=== PATIENT | male | born 1990 | race Caucasian/White ===

== ENCOUNTER 2018-09-28 16:23 | Inpatient (IN) | payer MEDICARE, MEDICAID, SELFPAY ==
[2018-09-28 16:24] VITALS: BP 160/103; PULSE 90; RESP 18; TEMP 36.4; O2SAT 97; BMI 39.3
--- NOTE | 2018-09-28 16:42 | ED.DCSUM_ITS ---
- ER Visit Summary Date of Service: 09/28/18 Chief Complaint: Detox History of Present Illness: The patient is a 28 M who is requesting detox from alcohol. He drinks approximately 24 beers per day. He has been using for about 4 years. His last period of sobriety was about a year ago. His last drink was yesterday. He reports DT symptoms. Denies a history of seizures. Denies any other drug use. Denies any thoughts of suicide or homicide. Physical Examination: Afebrile vital signs unremarkable except blood pressure 160/103. Patient is mildly diaphoretic. He has an intention tremor. Otherwise exam fairly unremarkable. Results: Laboratory studies, tox screen, alcohol pending. Emergency Department Course and Treatment: Patients CIWA score is 18. He was treated with Ativan. Will check clearance testing and contact the hospitalist for admission. Work-up unremarkable. Alcohol level pending. Hospitalist was contacted and will admit. Treatment Plan: As above Disposition: Admission Impression: 1. Alcohol withdrawal This note was generated with Video Pass[employer] dictation software. It may contain incorrect words, spelling, and punctuation that were not noted in review of the chart prior to signing ED Disposition - Plan for ED Patient: Referrals: Care Physician,No Primary [Primary Care Provider] -
[2018-09-28] MEDS: LORazepam 1 MG Tablet PO (17:00)
[2018-09-28 17:15] LABS: Absolute Lymphocyte Count 2.53 X10^3/uL (0.83-4.51); Absolute Neutrophil Count 5.9 X10^3/uL (2.0-7.7); Basophil# 0.04 X10^3/uL; Basophil% 0.4 % (0-1); Eosinophil# 0.19 X10^3/uL; Hematocrit 47.4 % (40-54); Hemoglobin 15.1 g/dL (13.0-16.5); Lymphocyte # 2.53 X10^3/ul (4.0); Mean Corp Hgb Conc 31.9 g/dL (32-36); Mean Corpuscular Hgb 29.4 pg (27.0-32.0); Mean Corpuscular Volume 92.2 fL (80-94); Mean Platelet Vol. 9.5 fl (6.2-12.0); Monocyte# 0.66 X10^3/uL; NRBC Flagged by Analyzer 0 % (0-5); Neutrophil # 5.89 X10^3/uL (2.7-7.7); Neutrophil % 62.9 % (47-70); Platelet Count 260 K/mm3 (150-450); RBC Distribution Width CV 13.4 % (11.6-14.6); RBC Distribution Width SD 45.5 fl (35.1-43.9); Red Blood Count 5.14 M/mm3 (4.6-6.2); White Blood Count 9.4 K/mm3 (4.4-11.0)
[2018-09-28 17:25] LABS: Amphetamine Urine VISTA NEGATIVE (<1000 ng/mL); Barbiturate Urine VISTA NEGATIVE (< 200 ng/mL); Benzodiazepine Urine VISTA NEGATIVE (< 200 ng/mL); Cocaine Urine VISTA NEGATIVE (< 300 ng/mL); Ecstacy Urine VISTA NEGATIVE (< 500 ng/mL); Methadone Urine VISTA NEGATIVE (< 300 ng/mL); PCP Urine VISTA NEGATIVE (< 25 ng/mL); THC Urine VISTA NEGATIVE (< 50 ng/mL); Vista UDS pH Range 6
[2018-09-28 17:26] VITALS: BMI 39.4
[2018-09-28 17:33] LABS: ALB/GLOB Ratio 0.9 RATIO (0.9-2.4); AST(SGOT) 44 U/L (15-37); Alanine Aminotransfer ALT/SGPT 73 U/L (16-61); Albumin, Serum 3.8 g/dL (3.2-5.0); Alkaline Phosphatase 109 U/L (45-117); Anion Gap 1 (5-15); BUN 12 mg/dL (7-18); BUN/Creat Ratio 13.3 RATIO (10-20); Calcium,Total 8.8 mg/dL (8.5-10.1); Chloride 106 mmol/L (98-107); EST Glomerular Filtration Rate 107 mL/min (>60); Est Glom Filt Rate - Afr Amer 129 mL/min (>60); Estimated Creatinine Clearance 150.02 ml/min; Globulin 4.2 g/dL (2.2-4.2); Glucose 96 mg/dL (74-106); Potassium 3.9 mmol/L (3.5-5.1); Sodium Level 136 mmol/L (136-145)
[2018-09-28 17:58] VITALS: BP 156/96; PULSE 79; RESP 18; TEMP 36.4; O2SAT 97
[2018-09-28 18:17] LABS: Alcohol, Blood (Medical)-Serum < 3.0 mg/dL
[2018-09-28 18:37] VITALS: BMI 39.4
[2018-09-28 18:41] VITALS: BMI 39.0
[2018-09-28 18:46] VITALS: BP 134/84; PULSE 78; RESP 18; TEMP 36.9
[2018-09-28 18:50] LABS: Bedside Glucose 92 mg/dL (70-110)
--- NOTE | 2018-09-28 19:43 | PCM.HP.STD ---
<Sanjay Ridley - Last Filed: 09/28/18 19:43> Problem List (1) Alcohol withdrawal Status: Acute (2) Nicotine abuse Status: Chronic History of Present Illness Date of Admission: 09/28/18 Chief Complaint: alcohol withdrawal The patient is a 28 year old M with pmhx of alcoholism and nicotine abuse who presented to the ER with alcohol withdrawal requesting help with detox. He has been drinking daily since he was a teenager. Lately he drinks 24 beers per day and half of a bottle of grocery store strength vodka. He states that lately, when he stops drinking he becomes very nauseous and vomits, and he gets right upper quadrant liver pain. He has upper extremity tremor. He has no hx of withdrawal seizures. He has had withdrawal hallucinations before - none this time. He starts drinking again so that these symptoms go away. He talked to his rag cutting machine tender about these problems who convinced him to come to the ER and get sober. He currently has mild nausea as the meds he received in the ER are working well. He plans [facility]. He smokes 1 ppd and would like a patch. He does not use recreational drugs. [] Past Medical History Past Medical History (Chronic Problems): Chronic Problems Nicotine abuse (Chronic) Allergies No Known Allergies Allergy (Verified 09/28/18 16:24) Home Medications: Ambulatory Orders Medication Instructions Recorded NK 09/28/18 Surgical History: adenoidectomy, tonsillectomy Psychiatric History: No pertinent psych hx Lives: Alone Smoking Status: Current every day smoker Tobacco Use: Cigarettes Alcohol: Heavy Drugs: None - *Family History Maternal History Items: - - denies any maternal medical hx Paternal History Items: - - denies any paternal medical hx Review of Systems Constitutional: Denies: Chills, Fever, Weight Change HEENT: Denies: Head Aches, Sinus Congestion, Sinus Drainage Cardiovascular: Denies: Chest Pain, Palpitations Respiratory: Denies: Cough, Shortness of breath at rest, Sputum production Gastrointestinal: Reports: Nausea, Vomiting. Denies: Abdominal Pain Genitourinary: Denies: Dysuria Musculoskeletal: Denies: Joint Pain, Joint Tenderness Skin: Denies: Rash, Wounds Neurological: Reports: Tremor. Denies: Focal weakness, Numbness, Tingling Psychiatric: Denies: Anxiety, Depression, Homicidal Ideations, Suicidal Ideations Hematologic/ Lymphatic: Denies: Easy Bruising, Easy Bleeding VTE Information - Inpt Only VTE Present on Admission: No VTE Mechan Device Prophylaxis: None VTE Pharm Prophylaxis ordered?: No Reason prophylaxis not ordered:: Procedure Not Indicated Patient Problems: Active and Suspected Problems Alcohol withdrawal (Acute) - Physical Exam General: Alert, Oriented x3, Cooperative HEENT: Atraumatic, PERRLA, EOMI, Normocephalic Neck: Supple, No JVD, Negative Carotid Bruits Lungs: Clear to auscultation, Normal air movement Cardiovascular: Regular rate, No murmurs Abdomen: Bowel Sounds Present, Soft, Non Tender Extremities: No edema, Capillary Refill Less than 3 Seconds Skin: No rashes, No breakdown Musculoskeletal: No Tenderness to Palpation of Joints or Extremities Neurological: Cranial nerves II-XII grossly intact, - - mild upper extremity tremor/ Psych/Mental Status: Normal Affect, Appropriate, Alert and oriented to time, place, person, mood and affect Vital Signs Temp Pulse Resp BP Pulse Ox 98.4 F 78 18 134/84 H 97 09/28/18 18:46 09/28/18 18:46 09/28/18 18:46 09/28/18 18:46 09/28/18 17:58 Oxygen Delivery Method Room Air Weight: 323 lb 10.217 oz Body Mass Index (BMI) 39.4 Laboratory Tests Past 24 Hrs 09/28/18 09/28/18 09/28/18 17:08 17:08 17:08 WBC 9.4 RBC 5.14 Hgb 15.1 Hct 47.4 MCV 92.2 MCH 29.4 MCHC 31.9 L RDW Std Deviation 45.5 H RDW Coeff of Debra 13.4 Plt Count 260 MPV 9.5 Immature Gran % (Auto) 0.700 Neut % (Auto) 62.9 Lymph % (Auto) 27.0 Schoolcraft % (Auto) 7.0 Eos % (Auto) 2.0 Baso % (Auto) 0.4 Absolute Neuts (auto) 5.9 Absolute Lymphs (auto) 2.53 Absolute Nucleated RBC 0.00 Nucleated RBC % 0 Sodium 136 Potassium 3.9 Chloride 106 Carbon Dioxide 29.0 Anion Gap 1 L BUN 12 Creatinine 0.90 Estim Creat Clear Calc 150.02 Est GFR (MDRD) Af Amer 129 Est GFR (MDRD) Non-Af 107 BUN/Creatinine Ratio 13.3 Glucose 96 Calcium 8.8 Total Bilirubin 0.40 AST 44 H ALT 73 H Alkaline Phosphatase 109 Total Protein 8.0 Albumin 3.8 Globulin 4.2 Albumin/Globulin Ratio 0.9 Urine Opiates Screen Urine Methadone Screen Ur Barbiturates Screen Ur Phencyclidine Scrn Ur Amphetamines Screen U Methamphetamin-MDMA U Benzodiazepines Scrn Urine Cocaine Screen U Cannabinoids Screen Ur Drug Screen Comment Ethyl Alcohol < 3.0 09/28/18 17:08 WBC RBC Hgb Hct MCV MCH MCHC RDW Std Deviation RDW Coeff of Debra Plt Count MPV Immature Gran % (Auto) Neut % (Auto) Lymph % (Auto) Schoolcraft % (Auto) Eos % (Auto) Baso % (Auto) Absolute Neuts (auto) Absolute Lymphs (auto) Absolute Nucleated RBC Nucleated RBC % Sodium Potassium Chloride Carbon Dioxide Anion Gap BUN Creatinine Estim Creat Clear Calc Est GFR (MDRD) Af Amer Est GFR (MDRD) Non-Af BUN/Creatinine Ratio Glucose Calcium Total Bilirubin AST ALT Alkaline Phosphatase Total Protein Albumin Globulin Albumin/Globulin Ratio Urine Opiates Screen NEGATIVE Urine Methadone Screen NEGATIVE Ur Barbiturates Screen NEGATIVE Ur Phencyclidine Scrn NEGATIVE Ur Amphetamines Screen NEGATIVE U Methamphetamin-MDMA NEGATIVE U Benzodiazepines Scrn NEGATIVE Urine Cocaine Screen NEGATIVE U Cannabinoids Screen NEGATIVE Ur Drug Screen Comment Ethyl Alcohol POC Glucose 09/28/18 18:35 POC Glucose 92 Assessment/Plan All Active Problems Alcohol withdrawal (Acute) 1. Alcoholism with acute withdrawal - 24 beers per day + 1/2 bottle grocery store vodka. Current sx: tremor, nausea, vomiting. No hx seizure. Prior hx hallucinations - none currently. Start librium taper and supportive prn meds. -CMP mild elevation of AST/ALT -Tox screen neg. 2. Nicotine abuse - patch DC planning: inpatient rehab Medical stabilization day 1 of This patient was seen by Sanjay Ridley PA-C under the supervision of Dr. Grant <Brandy Grant - Last Filed: 09/28/18 20:43> History of Present Illness The patient is a 28 year old M [] Past Medical History Allergies No Known Allergies Allergy (Verified 09/28/18 16:24) - Physical Exam Vital Signs Temp Pulse Resp BP Pulse Ox 98.4 F 78 18 134/84 H 97 09/28/18 18:46 09/28/18 18:46 09/28/18 18:46 09/28/18 18:46 09/28/18 17:58 Oxygen Delivery Method Room Air Weight: 323 lb 10.217 oz Body Mass Index (BMI) 39.4 Laboratory Tests Past 24 Hrs 09/28/18 09/28/18 09/28/18 17:08 17:08 17:08 WBC 9.4 RBC 5.14 Hgb 15.1 Hct 47.4 MCV 92.2 MCH 29.4 MCHC 31.9 L RDW Std Deviation 45.5 H RDW Coeff of Debra 13.4 Plt Count 260 MPV 9.5 Immature Gran % (Auto) 0.700 Neut % (Auto) 62.9 Lymph % (Auto) 27.0 Schoolcraft % (Auto) 7.0 Eos % (Auto) 2.0 Baso % (Auto) 0.4 Absolute Neuts (auto) 5.9 Absolute Lymphs (auto) 2.53 Absolute Nucleated RBC 0.00 Nucleated RBC % 0 Sodium 136 Potassium 3.9 Chloride 106 Carbon Dioxide 29.0 Anion Gap 1 L BUN 12 Creatinine 0.90 Estim Creat Clear Calc 150.02 Est GFR (MDRD) Af Amer 129 Est GFR (MDRD) Non-Af 107 BUN/Creatinine Ratio 13.3 Glucose 96 Calcium 8.8 Total Bilirubin 0.40 AST 44 H ALT 73 H Alkaline Phosphatase 109 Total Protein 8.0 Albumin 3.8 Globulin 4.2 Albumin/Globulin Ratio 0.9 Urine Opiates Screen Urine Methadone Screen Ur Barbiturates Screen Ur Phencyclidine Scrn Ur Amphetamines Screen U Methamphetamin-MDMA U Benzodiazepines Scrn Urine Cocaine Screen U Cannabinoids Screen Ur Drug Screen Comment Ethyl Alcohol < 3.0 09/28/18 17:08 WBC RBC Hgb Hct MCV MCH MCHC RDW Std Deviation RDW Coeff of Debra Plt Count MPV Immature Gran % (Auto) Neut % (Auto) Lymph % (Auto) Schoolcraft % (Auto) Eos % (Auto) Baso % (Auto) Absolute Neuts (auto) Absolute Lymphs (auto) Absolute Nucleated RBC Nucleated RBC % Sodium Potassium Chloride Carbon Dioxide Anion Gap BUN Creatinine Estim Creat Clear Calc Est GFR (MDRD) Af Amer Est GFR (MDRD) Non-Af BUN/Creatinine Ratio Glucose Calcium Total Bilirubin AST ALT Alkaline Phosphatase Total Protein Albumin Globulin Albumin/Globulin Ratio Urine Opiates Screen NEGATIVE Urine Methadone Screen NEGATIVE Ur Barbiturates Screen NEGATIVE Ur Phencyclidine Scrn NEGATIVE Ur Amphetamines Screen NEGATIVE U Methamphetamin-MDMA NEGATIVE U Benzodiazepines Scrn NEGATIVE Urine Cocaine Screen NEGATIVE U Cannabinoids Screen NEGATIVE Ur Drug Screen Comment Ethyl Alcohol POC Glucose 09/28/18 18:35 POC Glucose 92 Assessment/Plan Pateint seen by Sanjay Ridley PA-C under my supervision Patient is a 28-year-old with a history of dependence and nicotine abuse was admitted to the ED for alcohol withdrawal. Patient has been drinking since he was a teenager and drinks about 24 beers a day as well as help her low vodka. States he gets right upper quadrant pain when he stops drinking that is why he is continued drinking. He states he has withdrawal hallucinations but denies any history of withdrawal seizures. He decided to come into the ED for acute withdrawal. o/e: Vital Signs Height 6 ft 4 in Weight: 323 lb 10.217 oz Weight in Pounds 323.6 lbs Pulse Ox 97 Temperature 98.4 F Pulse Rate 78 Respiratory Rate 18 Blood Pressure 134/84 General: Alert, Oriented x3, Cooperative HEENT: Atraumatic, PERRLA, EOMI, Normocephalic Neck: Supple, No JVD, Negative Carotid Bruits Lungs: Clear to auscultation, Normal air movement Cardiovascular: Regular rate, No murmurs Abdomen: Bowel Sounds Present, Soft, Non Tender Extremities: No edema, Capillary Refill Less than 3 Seconds Skin: No rashes, No breakdown Musculoskeletal: No Tenderness to Palpation of Joints or Extremities Neurological: Cranial nerves II-XII grossly intact, - - mild upper extremity tremor Psych/Mental Status: Normal Affect, Appropriate, Alert and oriented to time, place, person, mood and affect Plan is to admit to [facility] surg for alcohol withdrawal. Start librium withdrawal protocol. Labs showed mildly elevated AST and ALT. CBC was unremarkable.. Tox was negative. Nicotine patch 21 mg daily. Rest of management as per Sanjay Ridley PA-C's note, which I have reviewed and endorsed. Code Visit Inpatient E&M: 29108 Init Hosp L3
[2018-09-28] MEDS: chlordiazePOXIDE 25 MG Capsule PO (20:26)
[2018-09-28 22:45] VITALS: BP 112/70; PULSE 80; RESP 16; TEMP 36.4
[2018-09-28] MEDS: traZODone 50 MG Tablet PO (22:50)
[2018-09-29 02:55] VITALS: BP 134/90; PULSE 84; RESP 16; TEMP 36.7
[2018-09-29] MEDS: chlordiazePOXIDE 25 MG Capsule PO ×4 (02:57→22:15)
[2018-09-29 06:56] VITALS: BP 133/93; PULSE 82; RESP 16; TEMP 37
[2018-09-29] MEDS: Methocarbamol 750 MG Tablet PO ×2 (07:00→15:36)
[2018-09-29] MEDS: hydrOXYzine PAM 25 MG Capsule 50 MG PO (07:00)
[2018-09-29] MEDS: Ondansetron ODT 4 MG Tablet PO (07:00)
--- NOTE | 2018-09-29 07:49 | PCM.PN.HOSP ---
Patient Problems: Active and Suspected Problems Alcohol withdrawal (Acute) Subjective: Doing well, no issues. States he does have a little bit of tremors but nothing terrible. Vitals/I&O's: Vital Signs Temp Pulse Resp BP Pulse Ox 98.6 F 82 16 133/93 H 97 09/29/18 06:56 09/29/18 06:56 09/29/18 06:56 09/29/18 06:56 09/28/18 17:58 Oxygen Delivery Method Room Air Weight: 323 lb 10.217 oz Body Mass Index (BMI) 39.4 Intake and Output for Last 24 Hours 09/27/18 09/28/18 09/29/18 23:59 23:59 23:59 Intake Total 1000 / 1000 Balance 1000 / 1000 General: Alert, Oriented x3, Cooperative, No apparent distress HEENT: Atraumatic, PERRLA, EOMI, Normocephalic Oral: Dry Mucosa Neck: Supple, No JVD Lungs: Clear to auscultation, Normal air movement, No rhonchi, No wheeze, No rales Cardiovascular: Regular rate, Regular Rhythm, Normal S1, Normal S2, No murmurs Abdomen: Soft, Non Tender, Non-Distended, No Hepato-splenomegaly Extremities: No edema, Capillary Refill Less than 3 Seconds Skin: No rashes, No breakdown Neurological: Neuro grossly intact, Sensory exam intact to light touch and pain Psych/Mental Status: Normal Affect, Appropriate Laboratory Results 09/28/18 17:08: WBC 9.4, RBC 5.14, Hgb 15.1, Hct 47.4, MCV 92.2, MCH 29.4, MCHC 31.9 L, RDW Std Deviation 45.5 H, RDW Coeff of Debra 13.4, Plt Count 260, MPV 9.5, Immature Gran % (Auto) 0.700, Neut % (Auto) 62.9, Lymph % (Auto) 27.0, Posey % (Auto) 7.0, Eos % (Auto) 2.0, Baso % (Auto) 0.4, Absolute Neuts (auto) 5.9, Absolute Lymphs (auto) 2.53, Absolute Nucleated RBC 0.00, Nucleated RBC % 0 09/28/18 17:08: Sodium 136, Potassium 3.9, Chloride 106, Carbon Dioxide 29.0, Anion Gap 1 L, BUN 12, Creatinine 0.90, Estim Creat Clear Calc 150.02, Est GFR (MDRD) Af Amer 129, Est GFR (MDRD) Non-Af 107, BUN/Creatinine Ratio 13.3, Glucose 96, Calcium 8.8, Total Bilirubin 0.40, AST 44 H, ALT 73 H, Alkaline Phosphatase 109, Total Protein 8.0, Albumin 3.8, Globulin 4.2, Albumin/Globulin Ratio 0.9 09/28/18 17:08: Ethyl Alcohol < 3.0 09/28/18 17:08: Urine Opiates Screen NEGATIVE, Urine Methadone Screen NEGATIVE, Ur Barbiturates Screen NEGATIVE, Ur Phencyclidine Scrn NEGATIVE, Ur Amphetamines Screen NEGATIVE, U Methamphetamin-MDMA NEGATIVE, U Benzodiazepines Scrn NEGATIVE, Urine Cocaine Screen NEGATIVE, U Cannabinoids Screen NEGATIVE, Ur Drug Screen Comment 09/28/18 18:35: POC Glucose 92 Current Medications Al Hydroxide/Mg Hydroxide (Mylanta Ii) 30 ml PO Q6H PRN PRN PRN Reason: dyspesia Bisacodyl (Dulcolax) 10 mg RECTAL DAILY PRN PRN Reason: Constipation Chlordiazepoxide (Librium) 50 mg PO Q6H MUSHTAQ; Taper Stop: 10/01/18 22:29 Last Admin: 09/29/18 02:57 Dose: 50 mg Documented by: Dicyclomine HCl (Bentyl) 20 mg PO Q6H PRN PRN PRN Reason: abdominal discomfort Folic Acid (Folic Acid) 1 mg PO DAILYCM MUSHTAQ Stop: 10/01/18 08:01 Hydroxyzine Pamoate (Vistaril Pamoate Capsule) 50 mg PO Q6H PRN PRN PRN Reason: Mild Anxiety (score 1/3) Last Admin: 09/29/18 07:00 Dose: 50 mg Documented by: Ibuprofen (Motrin) 600 mg PO Q8H PRN PRN PRN Reason: Mild-Moderate Pain (1-5/10) Loperamide HCl (Imodium) 2 - 4 mg PO UD PRN PRN Reason: LOOSE STOOLS Lorazepam (Ativan) 1 mg IV Q4H PRN PRN PRN Reason: Severe Anxiety Lorazepam (Ativan) 2 mg IV X1 PRN PRN Reason: Seizure Methocarbamol (Methocarbamol) 750 mg PO Q6H PRN PRN PRN Reason: Muscle Aches Last Admin: 09/29/18 07:00 Dose: 750 mg Documented by: Multivitamins (Multivitamin) [facility] Nicotine (Nicoderm Cq (Pbkc)) 21 mg TRANSDERM. DAILY [facility] Last Admin: 09/28/18 22:49 Dose: 21 mg Documented by: Nutritional Formula (Lactose Free) (Ensure Enlive) 120 ml PO 4X/DAY [facility] Last Admin: 09/28/18 22:50 Dose: 120 ml Documented by: Ondansetron HCl (Zofran Odt) 4 mg PO Q6H PRN PRN PRN Reason: NAUSEA Last Admin: 09/29/18 07:00 Dose: 4 mg Documented by: Senna (Senokot) 1 tablet PO QHS PRN PRN Reason: Constipation Thiamine HCl (Vitamin B1) 100 [facility] Stop: 10/01/18 08:01 Trazodone HCl (Desyrel) 50 mg PO QHS [facility] Last Admin: 09/28/18 22:50 Dose: 50 mg Documented by: Medical Necessity - Tobacco Use Smoking Status: Current every day smoker Tobacco Use: Cigarettes Assessment/Plan All Active Problems Alcohol withdrawal (Acute) 1. Alcohol withdrawal -He drinks 24 beers a day and a half bottle of grocery store vodka -Continue with the [facility] protocol 2. Nicotine abuse -Counseled on cessation -Nicotine patch ordered DVT: Ambulation Code Visit Inpatient E&M: 32414 Subs Hosp L2
[2018-09-29] MEDS: Multivitamins,Therapeutic Tablet 1 TABLET PO (11:37)
[2018-09-29] MEDS: Folic Acid 1 MG Tablet PO (11:37)
[2018-09-29] MEDS: Thiamine Hydrochloride 100 MG Tablet PO (11:37)
[2018-09-29 11:44] VITALS: BP 132/89; PULSE 87; RESP 16; TEMP 37
[2018-09-29] MEDS: Ibuprofen 600 MG Tablet PO (11:52)
--- NOTE | 2018-09-29 15:13 | CHAPLAIN ---
Type of Pastoral Visit _x__ Initial Visit ___ Follow-up Visit ___ On-call Visit ___ General Patient Visit ___ Spiritual Assessment ___ Family Conference ___ Bereavement ___ Rapid Response ___ Code Blue ___ Other (describe below) Pastoral Care Referral From _x__ Patient ___ Family ___ Nurse ___ Physician ___ Cartridge Belt Puncher ___ Screen Printing Paster ___ Other (describe below) Sacrament/Intervention _x__ Active listening ___ Anointing ___ Orthodox ___ Bereavement ___ Communion _x__ Edisi exploration ___ _x__ Life review _x__ Prayer ___ Reconciliation ___ Sacrament of Sick _x__ Supportive presence ___ Wedding ___ Other (describe below) Pastoral Comments
[2018-09-29 15:53] VITALS: BP 121/79; PULSE 77; RESP 16; TEMP 36.4
[2018-09-29 22:00] VITALS: BP 135/80; PULSE 79; RESP 18; TEMP 36.8
[2018-09-29] MEDS: traZODone 50 MG Tablet PO (22:15)
[2018-09-30 06:00] VITALS: BP 135/80; PULSE 91; RESP 18; TEMP 36.8
[2018-09-30] MEDS: chlordiazePOXIDE 25 MG Capsule PO ×3 (06:30→21:46)
[2018-09-30] MEDS: Methocarbamol 750 MG Tablet PO ×2 (06:31→21:47)
--- NOTE | 2018-09-30 07:48 | NURSING ---
Aware of 0600 Vitals and Withdrawal score assessment.
--- NOTE | 2018-09-30 08:43 | NURSING ---
Sitting in chair, denies needs at this time. Watching Tv.
[2018-09-30] MEDS: Thiamine Hydrochloride 100 MG Tablet PO (09:16)
[2018-09-30] MEDS: Multivitamins,Therapeutic Tablet 1 TABLET PO (09:16)
[2018-09-30] MEDS: Folic Acid 1 MG Tablet PO (09:16)
[2018-09-30 09:18] VITALS: BP 150/84; PULSE 93; RESP 18; TEMP 36.9
--- NOTE | 2018-09-30 09:35 | PN_ITS ---
Patient Problems: Active and Suspected Problems Alcohol withdrawal (Acute) Subjective: Feeling better today, has fewer tremors Vitals/I&O's: Vital Signs Temp Pulse Resp BP Pulse Ox 98.5 F 93 18 150/84 H 97 09/30/18 09:18 09/30/18 09:18 09/30/18 09:18 09/30/18 09:18 09/28/18 17:58 Oxygen Delivery Method Room Air Weight: 323 lb 10.217 oz Body Mass Index (BMI) 39.4 Intake and Output for Last 24 Hours 09/28/18 09/29/18 09/30/18 23:59 23:59 23:59 Intake Total 1959 / 0 600 / 600 Balance 1959 / 2439 600 / 600 General: Alert, Oriented x3, Cooperative, No apparent distress HEENT: Atraumatic, PERRLA, EOMI, Normocephalic Oral: Dry Mucosa Neck: Supple, No JVD Lungs: Clear to auscultation, Normal air movement, No rhonchi, No wheeze, No rales Cardiovascular: Regular rate, Regular Rhythm, Normal S1, Normal S2, No murmurs Abdomen: Soft, Non Tender, Non-Distended, No Hepato-splenomegaly Extremities: No edema, Capillary Refill Less than 3 Seconds Skin: No rashes, No breakdown Neurological: Neuro grossly intact, Sensory exam intact to light touch and pain Psych/Mental Status: Normal Affect, Appropriate Current Medications Al Hydroxide/Mg Hydroxide (Mylanta Ii) 30 ml PO Q6H PRN PRN PRN Reason: dyspesia Bisacodyl (Dulcolax) 10 mg RECTAL DAILY PRN PRN Reason: Constipation Chlordiazepoxide (Librium) 50 mg PO Q8H MUSHTAQ; Taper Stop: 10/01/18 22:29 Last Admin: 09/30/18 06:30 Dose: 50 mg Documented by: Dicyclomine HCl (Bentyl) 20 mg PO Q6H PRN PRN PRN Reason: abdominal discomfort Folic Acid (Folic Acid) 1 mg PO DAILYCM MUSHTAQ Stop: 10/01/18 08:01 Last Admin: 09/30/18 09:16 Dose: 1 mg Documented by: Hydroxyzine Pamoate (Vistaril Pamoate Capsule) 50 mg PO Q6H PRN PRN PRN Reason: Mild Anxiety (score 1/3) Last Admin: 09/29/18 07:00 Dose: 50 mg Documented by: Ibuprofen (Motrin) 600 mg PO Q8H PRN PRN PRN Reason: Mild-Moderate Pain (1-5/10) Last Admin: 09/29/18 11:52 Dose: 600 mg Documented by: Loperamide HCl (Imodium) 2 - 4 mg PO UD PRN PRN Reason: LOOSE STOOLS Lorazepam (Ativan) 1 mg IV Q4H PRN PRN PRN Reason: Severe Anxiety Lorazepam (Ativan) 2 mg IV X1 PRN PRN Reason: Seizure Methocarbamol (Methocarbamol) 750 mg PO Q6H PRN PRN PRN Reason: Muscle Aches Last Admin: 09/30/18 06:31 Dose: 750 mg Documented by: Multivitamins (Multivitamin) [facility] Last Admin: 09/30/18 09:16 Dose: 1 tablet Documented by: Nicotine (Nicoderm Cq (Pbkc)) 21 mg TRANSDERM. DAILY [facility] Last Admin: 09/30/18 09:16 Dose: 21 mg Documented by: Ondansetron HCl (Zofran Odt) 4 mg PO Q6H PRN PRN PRN Reason: NAUSEA Last Admin: 09/29/18 07:00 Dose: 4 mg Documented by: Senna (Senokot) 1 tablet PO QHS PRN PRN Reason: Constipation Thiamine HCl (Vitamin B1) 100 mg PO [facility] Stop: 10/01/18 08:01 Last Admin: 09/30/18 09:16 Dose: 100 mg Documented by: Trazodone HCl (Desyrel) 50 mg PO QHS [facility] Last Admin: 09/29/18 22:15 Dose: 50 mg Documented by: Medical Necessity - Tobacco Use Smoking Status: Current every day smoker Tobacco Use: Cigarettes Assessment/Plan All Active Problems Alcohol withdrawal (Acute) 1. Alcohol withdrawal -He drinks 24 beers a day and a half bottle of grocery store vodka -Continue with the [facility] protocol 2. Nicotine abuse -Counseled on cessation -Nicotine patch ordered DVT: Ambulation Code Visit Inpatient E&M: 80201 Subs Hosp L2
--- NOTE | 2018-09-30 11:53 | NEWVISION ---
Patient will enter inpatient treatment program on Wednesday10-03-18 at [facility] in [place], [place]. Patient states he is unsure of how he will get home. I asked patient how he got here. Patient stated his driving school instructor brought him. I requested he call his driving school instructor and see if he will be able to take him home tomorrow and to inpatient treatment on Wednesday. Patient stated he would call his driving school instructor. I urged patient to do so as soon as possible so that I may help facilitate other arrangements for transportation if necessary.
[2018-09-30 14:00] VITALS: BP 139/86; PULSE 92; RESP 18; TEMP 37.2
--- NOTE | 2018-09-30 14:13 | NEWVISION ---
SHARON Sanchez called to indicate patient did not have a ride home. Patient states his trust clerk cant take him home and his dad does not drive. I called Medicare, Medicaid, [facility] for transportation assistance without success. I communicated this to the patient. Patient states he will call his dad and see if there is anyone else available to pick him up tomorrow after his DC is complete.
[2018-09-30] MEDS: 0.9% NaCl Peripheral Flush Adult/Peds IV (14:55)
--- NOTE | 2018-09-30 16:48 | NURSING ---
Up walking the scott. Denies needs.
--- NOTE | 2018-09-30 16:53 | CHAPLAIN ---
Type of Pastoral Visit ___ Initial Visit _x__ Follow-up Visit ___ On-call Visit ___ General Patient Visit ___ Spiritual Assessment ___ Family Conference ___ Bereavement ___ Rapid Response ___ Code Blue ___ Other (describe below) Pastoral Care Referral From _x__ Patient ___ Family ___ Nurse ___ Physician ___ Fish Processing Supervisor ___ Tree And Shrub Worker ___ Other (describe below) Sacrament/Intervention _x__ Active listening ___ Anointing ___ Orthodoxy ___ Bereavement ___ Communion ___ Deisi exploration ___ ___ Life review _x__ Prayer ___ Reconciliation ___ Sacrament of Sick ___ Supportive presence ___ Wedding ___ Other (describe below) Pastoral Comments
[2018-09-30 18:37] VITALS: BP 127/89; PULSE 97; RESP 18; TEMP 36.4
[2018-09-30 18:39] VITALS: O2SAT 97
[2018-09-30] MEDS: traZODone 50 MG Tablet PO (21:45)
[2018-09-30 21:58] VITALS: BP 136/88; PULSE 96; RESP 18; TEMP 37.1
[2018-10-01 06:00] VITALS: BP 124/80; PULSE 77; RESP 18; TEMP 36.4
--- NOTE | 2018-10-01 07:13 | DCINST_ITS ---
- Discharge Diagnoses Current Active Problems: Current Active and Chronic Problems Alcohol withdrawal (Acute) Nicotine abuse (Chronic) You will use the following diet at home:: Regular Your food should be the consistency of: Regular Your liquids should be the consistency of: Regular/Thin Discharge Activity: Return to Normal Activity, No Restrictions Call your doctor if you observe: Fever of 101 or Higher, Using more than one pad per hour, Shortness of breath, Dizziness, Fainting spells, Swelling in the ankles, Chest pain, Increased palpitations (irregular heartbeat) Allergies/Adverse Reactions: Allergies No Known Allergies Allergy (Verified 09/28/18 16:24) Medications to take at Discharge NK 09/28/18 Primary Care Physician: Care Physician,No Primary [Primary Care Provider] - Please follow up with your Primary Care Physician in: 3-5 days Test Results: Test results from this visit will be discussed in further detail at your follow- up appointment, if applicable.
[2018-10-01 08:28] VITALS: BP 131/83; PULSE 84; RESP 18; TEMP 36.6; O2SAT 98
[2018-10-01 08:30] VITALS: RESP 18
[2018-10-01] MEDS: Multivitamins,Therapeutic Tablet 1 TABLET PO (08:31)
[2018-10-01] MEDS: Folic Acid 1 MG Tablet PO (08:32)
[2018-10-01] MEDS: Thiamine Hydrochloride 100 MG Tablet PO (08:32)
--- NOTE | 2018-10-01 08:55 | DS.PCM_ITS ---
Discharge Date and Diagnosis - Problem List Patient Problems: Active and Suspected Problems Alcohol withdrawal (Acute) Date of Admission: 09/28/18 Date of Discharge: 10/01/18 - Primary Discharge Diagnosis Active and Suspected Problems Alcohol withdrawal (Acute) - Secondary Discharge Diagnosis Chronic Problems Nicotine abuse (Chronic) Hospital Course and Treatment Imaging Results: None Consults: None Operations: None Procedures: None Summary of Care Provided: Per HPI: The patient is a 28 year old M with pmhx of alcoholism and nicotine abuse who presented to the ER with alcohol withdrawal requesting help with detox. He has been drinking daily since he was a teenager. Lately he drinks 24 beers per day and half of a bottle of grocery store strength vodka. He states that lately, when he stops drinking he becomes very nauseous and vomits, and he gets right upper quadrant liver pain. He has upper extremity tremor. He has no hx of withdrawal seizures. He has had withdrawal hallucinations before - none this time. He starts drinking again so that these symptoms go away. He talked to his marketing and outreach coordinator about these problems who convinced him to come to the ER and get sober. He currently has mild nausea as the meds he received in the ER are working well. He plans to do inpatient rehab [facility]. He smokes 1 ppd and would like a patch. He does not use recreational drugs. Hospital Course: 1. Alcohol withdrawal/nicotine [id number] male with a history of alcohol is medically medius who presented to the hospital alcohol withdrawal wanting detox. He drinks about 24 beers a day as well as a half bottle of vodka. He has outpatient rehab set up that he will go to 9 AM on Wednesday. He completed the [facility] protocol very well without any major issues and he was not extremely symptomatic during his 3-day withdrawal. Discussed with him the risks of continued drinking which she appears to understand. Also during his stay he was given a nicotine patch and counseled on cessation for his tobacco use. Patient Problems: Active and Suspected Problems Alcohol withdrawal (Acute) Objective: General: Alert, Oriented x3, Cooperative, No apparent distress HEENT: Atraumatic, PERRLA, EOMI, Normocephalic Oral: Dry Mucosa Neck: Supple, No JVD Lungs: Clear to auscultation, Normal air movement, No rhonchi, No wheeze, No rales Cardiovascular: Regular rate, Regular Rhythm, Normal S1, Normal S2, No murmurs Abdomen: Soft, Non Tender, Non-Distended, No Hepato-splenomegaly Extremities: No edema, Capillary Refill Less than 3 Seconds Skin: No rashes, No breakdown Neurological: Neuro grossly intact, Sensory exam intact to light touch and pain Psych/Mental Status: Normal Affect, Appropriate - Physical Exam Vital Signs Temp Pulse Resp BP Pulse Ox 98 F 84 18 131/83 H 98 10/01/18 08:28 10/01/18 08:28 10/01/18 08:30 10/01/18 08:28 10/01/18 08:28 Oxygen Delivery Method Room Air Weight: 323 lb 10.217 oz Body Mass Index (BMI) 39.4 Intake and Output for Last 24 Hours 09/29/18 09/30/18 10/01/18 23:59 23:59 23:59 Intake Total 1959 / 2440 1340 / 1780 590 / 590 Balance 1960 / 2440 1340 / 1780 590 / 590 Discharge Activity: Return to Normal Activity, No Restrictions Call your doctor if you observe: Fever of 101 or Higher, Using more than one pad per hour, Shortness of breath, Dizziness, Fainting spells, Swelling in the ankles, Chest pain, Increased palpitations (irregular heartbeat) Home Medications: Medications to take at Discharge NK 09/28/18 Primary Care Physician: Care Physician,No Primary [Primary Care Provider] - Please follow up with your Primary Care Physician in: 3-5 days Disposition: Home Minutes spent on discharge:: 20 Patient Condition:: Good Medical Necessity - Tobacco Use Smoking Status: Current every day smoker Tobacco Use: Cigarettes Meaningful Use Info Meaningful Use Diagnoses (Choose all that apply): None applicable Code Visit Inpatient E&M: 84337 Disch Hosp
[2018-10-01] MEDS: chlordiazePOXIDE 25 MG Capsule PO (10:10)
== END 2018-10-01 11:43 | disposition home or self-care (01) | DRG 897 ==
LOC: ED 17:20 → MS3 18:12
PROVIDERS: Admitting Provider Student in an Organized Health Care Education/Training Program; Emergency Provider Emergency Medicine; Referring Provider Student in an Organized Health Care Education/Training Program; Visit Provider Family Medicine
DX: F10.239 Alcohol dependence with withdrawal, unspecified (principal); F17.210 Nicotine dependence, cigarettes, uncomplicated
CPT/HCPCS: 80053; 80307; 80320; 82962; 85025; 99284; A4216; G0480